=== PATIENT | female | born 1955 | race Caucasian/White ===

== ENCOUNTER 2017-07-06 17:45 | Emergency (ER) | payer BC, OTHER ==
[2017-07-06 18:29] VITALS: BP 149/82
[2017-07-06] MEDS ORDERED: Ketorolac 60 MG/2 ML SDV IM ONE (19:08)
--- NOTE | 2017-07-06 20:41 | EDM.PDOC ---
ED HPI GENERAL MEDICAL PROBLEM - General Chief Complaint: Respiratory Problem Stated Complaint: SOB,BODY ACHES Time Seen by Provider: 07/06/17 18:55 Source of Information: Reports: Patient History Limitations: Reports: No Limitations - History of Present Illness INITIAL COMMENTS - FREE TEXT/NARRATIVE: 62-year-old female presents for evaluation and treatment of headaches, body aches and productive cough. Patient reports that she first started feeling well about 2 weeks ago but got better. She reports over the last 2 days she's developed worsening symptoms. Current symptoms include fevers, chills, headaches , body aches, productive cough and a sore throat. She denies any nausea, vomiting or abdominal pain. Patient did have an influenza vaccine this year. Patient works at [employer]. Treatments CORPORATE QUALITY MANAGER: Reports: Other (see below) Other Treatments CORPORATE QUALITY MANAGER: 3 advil at 0400 Chest Pain Score (Numeric/FACES): 7 - Related Data Allergies Allergy/AdvReac Type Severity Reaction Status Date / Time No Known Allergies Allergy Verified 03/06/14 00:25 Home Meds: Home Meds Hydrochlorothiazide 12.5 mg PO DAILY 03/06/14 [History] Meclizine [Antivert] 12.5 mg PO TID #15 tab 03/06/14 [Rx] Albuterol [Proair HFA] 8.5 mg INH Q4HR 06/25/14 [History] Montelukast Sodium [Singulair] 10 mg PO BEDTIME 06/25/14 [History] Omeprazole [Prilosec] 20 mg PO DAILY #14 capsule. 06/25/14 [Rx] guaiFENesin/Ephedrine HCl [Primatene Asthma] 1 each PO Q12HR PRN 06/25/14 [ History] Metoprolol Tartrate 25 mg PO DAILY 07/06/17 [History] Montelukast [Singulair] 10 mg PO DAILY 07/06/17 [History] Oseltamivir [Tamiflu] 75 mg PO BID #10 cap 07/06/17 [Rx] Past Medical History Cardiovascular History: Reports: Hypertension, Other (See Below) Other Cardiovascular History: edema at times Respiratory History: Reports: Asthma Gastrointestinal History: Reports: GERD - Past Surgical History Female Surgical History: Reports: Section Social & Family History - Tobacco Use Smoking Status *Q: Never Smoker Second Hand Smoke Exposure: No - Caffeine Use Caffeine Use: Reports: Energy Drinks Other Caffeine Use: very rare - Alcohol Use Days Per Week of Alcohol Use: 0 - Recreational Drug Use Recreational Drug Use: No ED ROS GENERAL - Review of Systems Review Of Systems: See Below Constitutional: Reports: Fever, Chills, Malaise, Fatigue HEENT: Reports: Throat Pain. Denies: Ear Pain Respiratory: Reports: Cough, Sputum GI/Abdominal: Denies: Abdominal Pain, Nausea, Vomiting Neurological: Reports: Headache ED EXAM, GENERAL - Physical Exam Exam: See Below Exam Limited By: No Limitations General Appearance: Alert, WD/WN, Moderate Distress Eye Exam: Bilateral Eye: Normal Inspection Ears: Normal External Exam, Normal Canal, Hearing Grossly Normal, Normal TMs Nose: Normal Inspection Throat/Mouth: Normal Inspection, Normal Lips, Normal Voice, No Airway Compromise Respiratory/Chest: No Respiratory Distress, Lungs Clear, Normal Breath Sounds Cardiovascular: Normal Peripheral Pulses, Regular Rate, Rhythm, No Murmur Neurological: Alert, Oriented, Normal Cognition Psychiatric: Normal Affect, Normal Mood Skin Exam: Diaphoretic, Increased Warmth Course - Vital Signs Last Recorded V/S: Last Vital Signs Temp 37.7 C 07/06/17 18:28 Pulse 105 H 07/06/17 18:28 Resp 22 H 07/06/17 18:28 BP 149/82 H 07/06/17 18:28 Pulse Ox 96 07/06/17 18:28 - Orders/Labs/Meds Meds: Medications Discontinued Medications Generic Name Dose Route Start Last Admin Trade Name Freq PRN Reason Stop Dose Admin Ketorolac Tromethamine 60 mg 07/06/17 19:08 07/06/17 19:18 Toradol IM 07/06/17 19:09 60 mg ONETIME ONE Administration - Radiology Interpretation Free Text/Narrative:: chest xray shows peribronchial cuffing, no acute intrathoracic process, no consolidation - Re-Assessments/Exams Free Text/Narrative Re-Assessment/Exam: 07/06/17 20:35 Influenza returned negative. I reviewed the labs and imaging with the patient. Despite the patient's influenza returning negative, I am highly suspicion that this is influenza. I did offer her Tamiflu and she would like to start it. Discharge instructions as documented. Departure - Departure Time of Disposition: 20:36 Disposition: Home, Self-Care 01 Condition: Fair Clinical Impression: Influenza - Discharge Information Prescriptions: Oseltamivir [Tamiflu] 75 mg PO BID #10 cap Instructions: Influenza, Adult Referrals: Marilee Helton MD [Primary Care Provider] - Forms: ED Department Discharge, ED Return to Work/School Form Additional Instructions: Tamiflu take 1 Twice a day 5 days. Good hand hygiene. [id number] Tylenol and Motrin for headaches and symptom relief. Note given for work. Rest. Make sure you are drinking plenty of fluids. Please return to the ER if your symptoms change or worsen.
--- NOTE | 2017-07-07 11:53 | CR ---
Chest: Two views of the chest were obtained. Comparison: Prior chest x-ray of 06/25/14. Heart size and mediastinum are within normal limits. Lungs are clear. Scattered disc space narrowing and mild osteophytes are seen within the spine. Diaphragms are slightly flattened on the lateral view suggesting the possibility of emphysematous change. Impression: 1. Findings as noted above. Nothing acute is identified on two-view chest x-ray. Diagnostic code #2
== END 2017-07-06 20:50 | disposition home or self-care (01) ==
LOC: JD.ED 17:45
DX: J11.1 Influenza due to unidentified influenza virus with other respiratory manifestations (principal); I10 Essential (primary) hypertension; J45.909 Unspecified asthma, uncomplicated; K21.9 Gastro-esophageal reflux disease without esophagitis; Z79.899 Other long term (current) drug therapy
CPT/HCPCS: 71046; 87804; 96372; 99285; J1885; 99283

== ENCOUNTER 2020-08-30 17:26 | Emergency (ER) | payer BC ==
[2020-08-30 17:38] VITALS: BP 159/86; PULSE 65
[2020-08-30] MEDS ORDERED: LORazepam 2 MG/ML SDV IVPUSH ONE (17:49)
[2020-08-30] MEDS ORDERED: Metoclopramide 10 MG/2 ML SDV IVPUSH ONE (17:49)
[2020-08-30] MEDS ORDERED: Sodium Chloride 0.9% 10 ML Syringe FLUSH PRN (17:49)
[2020-08-30] MEDS ORDERED: Sodium Chloride 0.9% 1,000 ML IV ONE (17:49)
--- NOTE | 2020-08-30 17:50 | EDM.PDOC ---
<Jordy Werner - Last Filed: 08/30/20 17:48> ED HPI GENERAL MEDICAL PROBLEM - General Chief Complaint: Neurological Problem Stated Complaint: DIZZY Time Seen by Provider: 08/30/20 17:50 - Related Data Allergies Allergy/AdvReac Type Severity Reaction Status Date / Time No Known Allergies Allergy Verified 08/30/20 17:37 Home Meds: Home Meds hydroCHLOROthiazide [Hydrochlorothiazide] 12.5 mg PO DAILY 03/06/14 [History] Albuterol [Proair HFA] 8.5 mg INH Q4HR 06/25/14 [History] Metoprolol Tartrate 25 mg PO DAILY 07/06/17 [History] Metoclopramide HCl 5 mg PO Q6H #12 tablet 08/30/20 [Rx] Past Medical History Cardiovascular History: Reports: Hypertension, Other (See Below) Other Cardiovascular History: edema at times Respiratory History: Reports: Asthma Gastrointestinal History: Reports: GERD - Past Surgical History Female Surgical History: Reports: Section Social & Family History - Tobacco Use Tobacco Use Status *Q: Never Tobacco User - Caffeine Use Caffeine Use: Reports: Energy Drinks Other Caffeine Use: very rare - Recreational Drug Use Recreational Drug Use: No Departure - Departure Disposition: Home, Self-Care 01 Clinical Impression: Vertigo - Discharge Information Prescriptions: Metoclopramide HCl 5 mg PO Q6H #12 tablet Instructions: Vertigo, [id number] Referrals: Marilee Helton MD [Primary Care Provider] - Forms: ED Department Discharge, ED Return to Work/School Form Additional Instructions: You were seen in the ER for your dizziness/vertigo. You were given IV fluids, medications and had some labs taken. The labs were all unremarkable. The IV fluids and medications seemed to work well to alleviate your dizziness/vertigo. You have been given a prescription for Reglan (metoclopramide) 5mg Q6H for the next 3 days. This medication was electronically prescribed to the [facility]. Please increase your oral fluid hydration. Please return to the ER if your symptoms should change or worsen. Sepsis Event Note (ED) - Evaluation Sepsis Screening Result: No Definite Risk <Rosalva Servin V - Last Filed: 08/30/20 19:12> ED HPI GENERAL MEDICAL PROBLEM - General Source of Information: Reports: Patient, RN Notes Reviewed History Limitations: Reports: No Limitations - History of Present Illness INITIAL COMMENTS - FREE TEXT/NARRATIVE: Patient is a 65-year-old female who presents to the ER for the evaluation of her dizziness. Patient notes she woke up with her dizziness. States that she has had some nausea throughout the day, and did vomit twice. She notes that the dizziness seems to worsen when she closes her eyes, she characterizes it as a world spinning dizziness. She has had issues with dizziness in the past, but she states this is by far the worst is ever been. She is not having any headaches, blurred vision or double vision. Again she notes movement seems to make it worse, along with closing her eyes. She states when she lays still it seems to make it better. Patient has a primary care provider at [facility] in [facility]. She did not take any medications prior to coming to the ER. She is not having any chest pain, cough/shortness of breath, or any other sick-like symptoms at this time. ED ROS GENERAL - Review of Systems Review Of Systems: Comprehensive ROS is negative, except as noted in HPI. ED EXAM, DIZZINESS - Physical Exam Exam: See Below Exam Limited By: No Limitations General Appearance: Alert, WD/WN, No Apparent Distress Eye Exam: Bilateral Eye: EOMI, Normal Inspection, PERRL Ears: Normal External Exam, Normal Canal, Hearing Grossly Normal, Normal TMs Throat/Mouth: Normal Inspection, Normal Lips, Normal Teeth, Normal Gums, Normal Oropharynx, Normal Voice, No Airway Compromise Respiratory/Chest: No Respiratory Distress, Lungs Clear, Normal Breath Sounds, No Accessory Muscle Use, Chest Non-Tender Cardiovascular: Normal Peripheral Pulses, Regular Rate, Rhythm, No Edema GI/Abdominal: Normal Bowel Sounds, Soft, Non-Tender, No Distention, No Mass Neurological: Alert, Normal Mood/Affect, Normal Dorsiflexion, CN II-XII Intact, Normal Plantar Flexion, No Motor/Sensory Deficits, Oriented x 3 Extremities: Normal Inspection, Normal Capillary Refill Psychiatric: Normal Affect, Normal Mood Skin Exam: Warm, Dry, Intact, Normal Color, No Rash #1 Interpretation EKG Date: 08/30/20 Time: 17:40 Rhythm: NSR Rate (Beats/Min): 60 [place]: Normal P-Wave: Present QRS: Normal ST-T: Normal QT: Normal Comparison: NA - No Prior EKG EKG Interpretation Comments: No obvious ischemia or acute ST changes noted, reviewed by myself and Dr. Werner. Course - Vital Signs Last Recorded V/S: Last Vital Signs Temp 96.4 F L 08/30/20 17:35 Pulse 65 08/30/20 17:35 Resp 16 08/30/20 17:35 BP 159/86 H 08/30/20 17:35 Pulse Ox 97 08/30/20 17:35 - Orders/Labs/Meds Orders: Active Orders 24 hr Category Date Time Status EKG Documentation Completion [RC] ASDIRECTED Care 08/30/20 17:41 Active Peripheral IV Care [RC] . DIRECTED Care 08/30/20 17:49 Active Sodium Chloride 0.9% [Saline Flush] Med 08/30/20 17:49 Active 10 ml FLUSH ASDIRECTED PRN Peripheral IV Insertion Adult [OM.PC] Routine Oth 08/30/20 17:49 Ordered EKG 12 Lead [EK] Stat Ther 08/30/20 17:40 Ordered Medication Orders Sodium Chloride (Sodium Chloride 0.9% 10 Ml Syringe) 10 ml FLUSH ASDIRECTED PRN PRN Reason: Keep Vein Open Last Admin: 08/30/20 18:01 Dose: 10 ml Documented by: GUILLE Labs: Laboratory Tests 08/30/20 08/30/20 Range/Units 18:00 18:00 WBC 6.52 (3.98-10.04) K/mm3 RBC 4.14 (3.98-5.22) M/mm3 Hgb 11.9 D (11.2-15.7) gm/dl Hct 38.6 (34.1-44.9) % MCV 93.2 D (79.4-94.8) fl MCH 28.7 (25.6-32.2) pg MCHC 30.8 L (32.2-35.5) g/dl RDW Std Deviation 44.1 (36.4-46.3) fL Plt Count 225 D (182-369) K/mm3 MPV 10.6 (9.4-12.3) fl Neut % (Auto) 70.5 (34.0-71.1) % Lymph % (Auto) 17.3 L (19.3-51.7) % [place] % (Auto) 6.0 (4.7-12.5) % Eos % (Auto) 5.4 (0.7-5.8) Baso % (Auto) 0.5 (0.1-1.2) % Neut # (Auto) 4.60 (1.56-6.13) K/mm3 Lymph # (Auto) 1.13 L (1.18-3.74) K/mm3 [place] # (Auto) 0.39 H (0.24-0.36) K/mm3 Eos # (Auto) 0.35 (0.04-0.36) K/mm3 Baso # (Auto) 0.03 (0.01-0.08) K/mm3 Sodium 144 (136-145) mEq/L Potassium 3.6 (3.5-5.1) mEq/L Chloride 108 H (98-107) mEq/L Carbon Dioxide 26 (21-32) mEq/L Anion Gap 13.6 (5-15) BUN 27 H (7-18) mg/dL Creatinine 0.7 (0.55-1.02) mg/dL Est Cr Clr Drug Dosing 65.06 mL/min Estimated GFR (MDRD) > 60 (>60) mL/min BUN/Creatinine Ratio 38.6 H (14-18) Glucose 92 (80-115) mg/dL Calcium 8.3 L (8.5-10.1) mg/dL Magnesium 2.1 (1.8-2.4) mg/dl Total Bilirubin 0.3 (0.2-1.0) mg/dL AST 16 (15-37) U/L ALT 26 (14-59) U/L Alkaline Phosphatase 60 (46-116) U/L Total Protein 7.0 (6.4-8.2) g/dl Albumin 3.6 (3.4-5.0) g/dl Globulin 3.4 gm/dL Albumin/Globulin Ratio 1.1 (1-2) Meds: Medications Generic Name Dose Route Start Last Admin Trade Name Freq PRN Reason Stop Dose Admin Sodium Chloride 10 ml 08/30/20 17:49 08/30/20 18:01 Sodium Chloride 0.9% 10 Ml Syringe FLUSH 10 ml ASDIRECTED PRN Administration Keep Vein Open Discontinued Medications Generic Name Dose Route Start Last Admin Trade Name Freq PRN Reason Stop Dose Admin Sodium Chloride 1,000 mls @ 999 mls/hr 08/30/20 17:49 08/30/20 18:00 Normal Saline IV 08/30/20 18:49 999 mls/hr ONETIME ONE Administration Lorazepam 1 mg 08/30/20 17:49 08/30/20 18:02 Lorazepam 2 Mg/Ml Sdv IVPUSH 08/30/20 17:50 1 mg ONETIME ONE Administration Metoclopramide HCl 10 mg 08/30/20 17:49 08/30/20 18:00 Metoclopramide 10 Mg/2 Ml Sdv IVPUSH 08/30/20 17:50 10 mg ONETIME ONE Administration - Re-Assessments/Exams Free Text/Narrative Re-Assessment/Exam: 08/30/20 17:59 Patient presents to the Ed for her dizziness. Will get IV started, give her some meds and fluids and check some baseline labs. EKG was done at time of triage and shows no sign of ST segment change or abnormality. 08/30/20 18:47 Labs have come back, and are essentially unremarkable. We will reassess the patient in a short amount of time to see if her dizziness is better, and formulate a discharge plan for her dizziness. 08/30/20 19:04 Patient states that she is feeling markedly better after the medications given. Departure - Departure Time of Disposition: 19:05 Condition: Good - Discharge Information *PRESCRIPTION DRUG MONITORING PROGRAM REVIEWED*: No *COPY OF PRESCRIPTION DRUG MONITORING REPORT IN PATIENT NETO: No Sepsis Event Note (ED) - Focused Exam Vital Signs: Vital Signs Temp Pulse Resp BP Pulse Ox 08/30/20 17:35 96.4 F L 65 16 159/86 H 97 - My Orders Last 24 Hours: My Active Orders 08/30/20 17:40 EKG 12 Lead [EK] Stat 08/30/20 17:41 EKG Documentation Completion [RC] ASDIRECTED 08/30/20 17:49 Peripheral IV Care [RC] . DIRECTED Sodium Chloride 0.9% [Saline Flush] 10 ml FLUSH ASDIRECTED PRN Peripheral IV Insertion Adult [OM.PC] Routine - Assessment/Plan Last 24 Hours: My Active Orders 08/30/20 17:40 EKG 12 Lead [EK] Stat 08/30/20 17:41 EKG Documentation Completion [RC] ASDIRECTED 08/30/20 17:49 Peripheral IV Care [RC] . DIRECTED Sodium Chloride 0.9% [Saline Flush] 10 ml FLUSH ASDIRECTED PRN Peripheral IV Insertion Adult [OM.PC] Routine
== END 2020-08-30 19:15 | disposition home or self-care (01) ==
LOC: JD.ED 17:26
DX: R42 Dizziness and giddiness (principal); J45.909 Unspecified asthma, uncomplicated; I10 Essential (primary) hypertension; Z79.899 Other long term (current) drug therapy
CPT/HCPCS: 36415; 80053; 83735; 85025; 93005; 96374; 96375; 99284; J2060; J2765; J7030; 93010